=== PATIENT | male | born 1965 | race Caucasian/White ===

== ENCOUNTER 2020-02-16 22:47 | Emergency (ER) | payer MEDICAID, OTHER ==
[~2020-02-16] VITALS: Ht 185.4 cm; Wt 68.0 kg
[2020-02-16 23:12] VITALS: BP 140/76
--- NOTE | 2020-02-17 00:24 | NUR ---
called pt to be seen by er doc. pt not in wr at this time. will follow up.
== END 2020-02-17 01:10 | disposition home or self-care (01) ==
LOC: ER 22:54
DX: L02.414 Cutaneous abscess of left upper limb (principal)